=== PATIENT | female | born 1965 ===

== ENCOUNTER 2024-07-30 09:10 | Outpatient (CLI) | payer OTHER ==
[~2024-07-30 09:10] MED LIST: NAPROXEN500 MG PO
== END 2024-07-30 09:12 | disposition home or self-care (01) ==
LOC: SONOGRAMA 09:10
PROVIDERS: ATTEND Pathology Anatomic Pathology & Clinical Pathology
DX: E04.1 Nontoxic single thyroid nodule (principal)